=== PATIENT | male | born 1995 | race Hispanic/Latino ===

== ENCOUNTER 2017-11-11 12:38 | Emergency (ER) | payer BC ==
[~2017-11-11] VITALS: Ht 162.6 cm; Wt 90.7 kg
[2017-11-11 13:14] VITALS: BP 136/79
== END 2017-11-11 13:15 | disposition home or self-care (01) ==
LOC: ER 12:38
DX: L05.01 Pilonidal cyst with abscess (principal)
CPT/HCPCS: 99283